=== PATIENT | female | born 2000 | race Caucasian/White ===

== ENCOUNTER 2021-10-30 19:31 | Emergency (ER) | payer MEDICAID ==
[~2021-10-30] VITALS: Ht 172.7 cm; Wt 136.0 kg
[2021-10-31 06:40] VITALS: BP 137/69
[2021-10-31] MEDS ORDERED: IBUP800T27 PO (06:59)
[2021-10-31] MEDS ORDERED: CEPH-509 PO (06:59)
== END 2021-10-31 07:48 | disposition home or self-care (01) ==
LOC: ER 19:31
DX: S91.202A Unspecified open wound of left great toe with damage to nail, initial encounter (principal); Z79.1 Long term (current) use of non-steroidal anti-inflammatories (NSAID); Z79.899 Other long term (current) drug therapy; W22.8XXA Striking against or struck by other objects, initial encounter; Y93.89 Activity, other specified; Y92.89 Other specified places as the place of occurrence of the external cause; Y99.8 Other external cause status
CPT/HCPCS: 11730

== ENCOUNTER 2021-10-31 06:22 | Emergency (ER) | payer MEDICAID ==
[2021-10-31] MEDS ORDERED: IBUP800T27 PO (06:59)
[2021-10-31] MEDS ORDERED: CEPH-509 PO (06:59)
== END 2021-10-31 06:29 | disposition left against medical advice (07) ==
LOC: ER 06:22
DX: M79.675 Pain in left toe(s) (principal); Z53.21 Procedure and treatment not carried out due to patient leaving prior to being seen by health care provider